=== PATIENT | male | born 1985 | race Caucasian/White ===

== ENCOUNTER 2017-11-03 07:58 | Emergency (ER) | payer MEDICAID ==
[~2017-11-03] VITALS: Ht 175.3 cm; Wt 73.9 kg
[2017-11-03] MEDS: IV NORMAL SALINE 1000 ML BAG IV ONE ×2 (08:15→09:58)
[2017-11-03 08:41] LABS: BASOPHILS # (AUTO) 0.1 K/uL (0.0-8.0); BASOPHILS % (AUTO) 0.3 % (0.0-2.0); CREATININE 1.3 mg/dL (0.6-1.3); EOSINOPHILS % (AUTO) 0.1 % (0.0-7.0); HEMATOCRIT 44.3 % (36.7-47.1); LYMPHOCYTES # (AUTO) 0.2 K/uL (20.0-40.0); LYMPHOCYTES % (AUTO) 1.3 % (20.5-51.5); MEAN CORPUSCULAR HEMOGLOBIN 28.4 uug (23.8-33.4); MEAN CORPUSCULAR HGB CONC 34 g/dL (32.5-36.3); MEAN CORPUSCULAR VOLUME 83.9 fL (73.0-96.2); MONOCYTES # (AUTO) 0.5 K/uL (2.0-10.0); MONOCYTES % (AUTO) 2.9 % (0.0-11.0); NEUTROPHILS # (AUTO) 17.5 K/uL (1.8-8.9); NEUTROPHILS % (AUTO) 95.4 % (38.5-71.5); PLATELET COUNT (AUTO) 325 K/uL (152-348); RED BLOOD CELL COUNT(AUTO) 5.27 MIL/uL (4.06-5.63); WHITE BLOOD COUNT (AUTO) 18.3 K/uL (3.6-10.2)
[2017-11-03 08:47] LABS: BILIRUBIN,DIRECT 0.2 mg/dL (0.0-0.2); BILIRUBIN,TOTAL 1.2 mg/dL (0.2-1.0)
[2017-11-03 09:06] LABS: BAND % (MANUAL) 12 % (0-10); LYMPHOCYTES % (MANUAL) 1 % (20-40); MONOCYTES % (MANUAL) 3 % (2-10); NEUTROPHILS % (MANUAL) 84 % (42-75)
[2017-11-03] MEDS ORDERED: ONDANSETRON 4 MG/2 ML VIAL ONE (09:41)
[2017-11-03] MEDS: ONDANSETRON 4 MG/2 ML VIAL IV ONE (09:46)
--- NOTE | 2017-11-03 10:56 | NUR ---
pt says feels better.deneis nausea or dizziness at this point. pt called friend to come and pick her up.pt walks in steady gait.
[2017-11-03 10:57] VITALS: BP 121/69
--- NOTE | 2017-11-03 11:17 | NUR ---
pt waiting for friend to come.
== END 2017-11-03 11:20 | disposition home or self-care (01) ==
LOC: ER 07:58
DX: T62.91XA Toxic effect of unspecified noxious substance eaten as food, accidental (unintentional), initial encounter (principal); Y92.89 Other specified places as the place of occurrence of the external cause; Z88.8 Allergy status to other drugs, medicaments and biological substances
CPT/HCPCS: 36415; 83690; 85025; A4663; J2405; J7030

== ENCOUNTER 2022-07-25 18:30 | Emergency (ER) | payer MEDICAID ==
[~2022-07-25] VITALS: Ht 175.3 cm; Wt 78.0 kg
--- NOTE | 2022-07-25 18:40 | NUR ---
Pt. walked into the ER c/o of right hand pain and injury. ER MD evaluated at bedside.
[2022-07-25] MEDS ORDERED: LIDOCAINE 5% PATCH TD ONE ×2 (19:00→19:30)
[2022-07-25] MEDS ORDERED: CYCLOBENZAPRINE HCL 10 MG TABLET PO ONE (19:00)
[2022-07-25] MEDS ORDERED: HYDROCODONE/APAP 5-325MG TABLET PO ONE ×2 (19:00→19:45)
[2022-07-25] MEDS ORDERED: ACETAMINOPHEN 325 MG TABLET PO ONE (19:30)
[2022-07-25] MEDS ORDERED: HYDROCODONE/APAP 5-325MG TABLET ONE (19:34)
[2022-07-25] MEDS ORDERED: TDAP DIPH,PERTUSS,TET VAC/PF 0.5 ML DISP.SYRIN IM ONE ×2 (19:45→19:54)
[2022-07-25] MEDS ORDERED: MORPHINE SULFATE 4 MG/1 ML DISP.SYRIN ONE (22:29)
[2022-07-25] MEDS ORDERED: MORPHINE SULFATE 4 MG/1 ML DISP.SYRIN IV ONE (22:30)
[2022-07-25] MEDS ORDERED: MORPHINE SULFATE 4 MG/1 ML DISP.SYRIN IM ONE (22:30)
[2022-07-25] MEDS ORDERED: HYDR-3980 PO (23:10)
--- NOTE | 2022-07-25 23:10 | NUR ---
Patient discharged to home in stable condition with right hand splint. Written and verbal after care instructions given. Patient verbalizes understanding of instructions. Stressed follow up or return to ER for worsening s/s.
[2022-07-25 23:35] VITALS: BP 120/65
== END 2022-07-25 23:15 | disposition home or self-care (01) ==
LOC: ER 18:32
DX: S62.336A Displaced fracture of neck of fifth metacarpal bone, right hand, initial encounter for closed fracture (principal); W22.01XA Walked into wall, initial encounter; Y92.89 Other specified places as the place of occurrence of the external cause; U07.1 COVID-19
CPT/HCPCS: 99284; 29125; 73110; 73130; 96372; J2270; 90715; A4663; J7040